=== PATIENT | male | born 1995 | race Caucasian/White ===

== ENCOUNTER 2023-01-25 19:06 | Inpatient (IN) | payer MEDICAID ==
[~2023-01-25] VITALS: Ht 175.3 cm; Wt 78.5 kg
[~2023-01-25 19:06] MED LIST: HYDR-4001 MT
[2023-01-25 21:55] LABS: CLARITY URINE CLEAR (CLEAR); COLOR URINE YELLOW (YELLOW); GLUCOSE URINE NEGATIVE (NEGATIVE); KETONES URINE NEGATIVE (NEGATIVE); LEUKOCYTE ESTERASE URINE NEGATIVE (NEGATIVE); NITRITE URINE NEGATIVE (NEGATIVE); OCCULT BLOOD URINE NEGATIVE (NEGATIVE); PROTEIN URINE NEGATIVE (NEGATIVE); UROBILINOGEN URINE 0.2 E.U./dL (0.2-1.0)
[2023-01-25 22:06] LABS: BASOPHILS % 0.2 % (0.0-2.0); EOSINOPHILS % 0.4 % (0.0-5.0); HEMATOCRIT. 44.9 % (42.0-52.0); HEMOGLOBIN. 15.2 g/dL (14.0-18.0); LYMPHOCYTES % 13.2 % (20.0-50.0); MEAN CORPUSCULAR HGB CONC 33.9 g/dL (31.0-37.0); MEAN CORPUSCULAR VOLUME 82.6 fL (80.0-94.0); MONOCYTES % 6.1 % (2.0-8.0); NEUTROPHILS % 80.1 % (40.0-76.0); PLATELET 435 x1000/uL (130-400); RED BLOOD CELL COUNT 5.43 mill/uL (4.7-6.1); RED CELL DISTRIBUTION WIDTH 13.2 % (11.6-14.6); WHITE BLOOD COUNT 12.5 x1000/uL (4.5-11.0)
[2023-01-25 22:15] LABS: CHLORIDE 101 mEq/L (98-107); INDEX HEMOLYSI 1 (1-3); INDEX ICTERIC 1 (1-4); INDEX LIPEMIC 1 (1-3); POTASSIUM 4.2 mEq/L (3.5-5.1); SODIUM 133 mEq/L (136-145)
[2023-01-25 22:22] LABS: ALANINE AMINOTRANSFERASE 35 IU/L (13-61); ASPARTATE AMINOTRANSFERASE 17 IU/L (15-37); BILIRUBIN TOTAL 0.9 mg/dL (0.1-1.0); CALCIUM 9.7 mg/dL (8.5-10.1); CARBON DIOXIDE 29 mEq/L (21-32); CREATININE 0.9 mg/dL (0.6-1.3); GLUCOSE 96 mg/dL (70-105); PROTEIN TOTAL 9.2 g/dL (6.0-8.3); UREA NITROGEN BLOOD 13 mg/dL (7-21)
[2023-01-25] MEDS ORDERED: DIATR MEGLU/DIATRIZOATE SOLN 30ML PO ONE (23:45)
[2023-01-25] MEDS ORDERED: DIATR MEGLU/DIATRIZOATE SOLN 30ML PO NR (23:45)
[2023-01-26] MEDS ORDERED: PIPERACILLIN/TAZOBACTAM 3.375GM/50ML PREMIX IV ONE (04:30)
[2023-01-26] MEDS ORDERED: PIPERACILLIN/TAZ 3.375G PREMIX 50 ML IV NR (04:30)
[2023-01-26] MEDS ORDERED: SODIUM CHLORIDE 0.9% 1,000 ML IV ONE (04:30)
[2023-01-26] MEDS ORDERED: VANCOMYCIN 1G PREMIX 200 ML IV SCH (04:30)
[2023-01-26] MEDS ORDERED: VANCOMYCIN 1G PREMIX 200 ML IV NR (04:30)
[2023-01-26] MEDS ORDERED: IOHEXOL-300 100 ML BOTTLE ONE (04:35)
[2023-01-26 09:00] VITALS: BP 106/61; PULSE 64; RESP 18; TEMP 97.8
[2023-01-26] MEDS ORDERED: ONDANSETRON HCL 4MG/2ML INJ IV PRN (10:00)
[2023-01-26] MEDS ORDERED: PIPERACILLIN/TAZ 3.375G PREMIX 50 ML IV SCH (10:00)
[2023-01-26] MEDS ORDERED: ZOLPIDEM TARTRATE 5MG TABLET PO PRN (10:00)
[2023-01-26] MEDS ORDERED: DIPHENHYDRAMINE 50MG/ML VIAL IV PRN (10:00)
[2023-01-26] MEDS ORDERED: ACETAMINOPHEN 325MG TABLET PO PRN ×2 (10:00)
[2023-01-26 12:00] VITALS: BP 100/51; PULSE 67; RESP 20; TEMP 97.8
[2023-01-26] MEDS: PIPERACILLIN/TAZOBACTAM 3.375G in DEXT 5% WATER 50ML IV SCH ×2 (14:16→21:22)
[2023-01-26] MEDS: SODIUM CHLORIDE 0.9% INJ 3ML FLUSH IVF SCH ×2 (14:16→21:24)
[2023-01-26 16:00] VITALS: BP 86/50; PULSE 67; RESP 20; TEMP 99
[2023-01-26 16:38] VITALS: BP 100/51; PULSE 61; RESP 18; TEMP 97.8
[2023-01-26 20:00] VITALS: BP 109/64; PULSE 82; RESP 18; TEMP 97.9
[2023-01-27] VITALS: BP 105/62; PULSE 59; RESP 18; TEMP 97.8
[2023-01-27 04:00] VITALS: BP 96/58; PULSE 62; RESP 20; TEMP 98.5
[2023-01-27] MEDS: PIPERACILLIN/TAZOBACTAM 3.375G in DEXT 5% WATER 50ML IV SCH ×2 (05:39→13:21)
[2023-01-27] MEDS: SODIUM CHLORIDE 0.9% INJ 3ML FLUSH IVF SCH ×2 (05:41→13:22)
[2023-01-27 08:00] VITALS: BP 93/57; PULSE 56; RESP 20; TEMP 97.7
[2023-01-27 12:00] VITALS: BP 100/61; PULSE 62; RESP 20; TEMP 96.6
[2023-01-27 14:54] VITALS: BP 100/61; PULSE 62; TEMP 98.2; O2SAT 99
[2023-01-27 16:00] VITALS: BP 90/58; PULSE 69; RESP 20; TEMP 99
[2023-01-27 18:23] LABS: BASOPHILS % 0.4 % (0.0-2.0); EOSINOPHILS % 0.5 % (0.0-5.0); HEMATOCRIT. 41.1 % (42.0-52.0); LYMPHOCYTES % 11.9 % (20.0-50.0); MEAN CORPUSCULAR HEMOGLOBIN 28.1 pg (28.0-32.0); MEAN CORPUSCULAR HGB CONC 34.1 g/dL (31.0-37.0); MEAN CORPUSCULAR VOLUME 82.5 fL (80.0-94.0); MEAN PLATELET VOLUME 8.2 fl (7.4-10.4); MONOCYTES % 7.1 % (2.0-8.0); NEUTROPHILS % 80.1 % (40.0-76.0); PLATELET 369 x1000/uL (130-400); RED BLOOD CELL COUNT 4.98 mill/uL (4.7-6.1); RED CELL DISTRIBUTION WIDTH 12.9 % (11.6-14.6); WHITE BLOOD COUNT 10.7 x1000/uL (4.5-11.0)
== END 2023-01-27 18:03 | disposition home or self-care (01) | DRG 254 ==
LOC: ER 19:06 → 6EST 01-26 04:33 → ER 01-26 08:31
PROVIDERS: ADMIT Internal Medicine; ATTEND Internal Medicine
DX: K61.1 Rectal abscess (principal); K65.1 Peritoneal abscess; Z87.19 Personal history of other diseases of the digestive system; Z90.49 Acquired absence of other specified parts of digestive tract
CPT/HCPCS: 36415; 74177; 80053; 81003; 83605; 85025; 99285; J2543; J3370; J7060; Q9963; Q9967